=== PATIENT | male | born 1990 | race Caucasian/White ===

== ENCOUNTER 2021-08-24 17:16 | Inpatient (IN) | payer OTHER ==
[~2021-08-24] VITALS: Ht 180.3 cm; Wt 65.8 kg
[2021-08-24 20:23] LABS: HEMOGLOBIN 12.4 gm/dl (14.0-17.5); RED BLOOD COUNT 4.25 M/UL (4.20-5.50); WHITE BLOOD COUNT 27.4 K/UL (4.5-11.0)
[2021-08-24 21:05] LABS: BUN/CREATININE RATIO 11 (0-10)
[2021-08-25 07:45] LABS: RED BLOOD COUNT 3.88 M/UL (4.20-5.50); WHITE BLOOD COUNT 23.7 K/UL (4.5-11.0)
[2021-08-25 07:52] LABS: BUN/CREATININE RATIO 12 (0-10)
--- NOTE | 2021-08-26 04:25 | NUR ---
Patient requested that I pull blood from his IV for his morning labs. I told the patient that it was against our floors policy to do so. Patient stated that he was not going to let lab stick him. I informed the patient that he had important AM labs including a vancomycin trough, but he still refused.
[2021-08-26] MEDS ORDERED: BACTRIM DS TAB1 EACH PO (10:27)
== END 2021-08-26 13:08 | disposition home or self-care (01) | DRG 872 ==
LOC: ER1 17:16 → CDU 21:17 → 3 EAST 21:17 → M/S 08-25 20:21
PROVIDERS: Internal Medicine; Nurse Practitioner; Surgery; ADMIT Internal Medicine
PROC: 0X980ZZ Drainage of Right Upper Arm, Open Approach (ICD-10-PCS; 2021-08-25)
PROC: B24BZZZ Ultrasonography of Heart with Aorta (ICD-10-PCS; 2021-08-25)
PROC: 0X990ZZ Drainage of Left Upper Arm, Open Approach (ICD-10-PCS; principal; 2021-08-25 10:49)
DX: A41.9 Sepsis, unspecified organism (principal); L03.114 Cellulitis of left upper limb; L03.113 Cellulitis of right upper limb; L02.414 Cutaneous abscess of left upper limb; L02.413 Cutaneous abscess of right upper limb; F17.200 Nicotine dependence, unspecified, uncomplicated; Z20.822 Contact with and (suspected) exposure to COVID-19; F19.10 Other psychoactive substance abuse, uncomplicated; Z80.9 Family history of malignant neoplasm, unspecified
CPT/HCPCS: ECHO; 36415; 80048; 81001; 83605; 85025; 85652; 86140; 87040; 87070; 87205; 93005; 93306; 93970; 96374; 96375; 96376; 99284; J0692; J1100; J1170; J1650; J1885; J2001; J2250; J2270; J2370; J2405; J2704; J3010; J3370; J7030; J7070; J7120; U0002